=== PATIENT | male | born 1965 | race Caucasian/White ===

== ENCOUNTER 2021-04-16 13:04 | Inpatient (IN) ==
[2021-04-16 15:02] LABS: ABS Basophils 0.1 10^3/ul (0-0.2); ABS Lymphocytes 2.6 10^3/ul (1.0-4.8); ABS Monocytes 0.7 10^3/ul (0-0.8); ABS Neutrophils 5.6 10^3/ul (1.5-7.7); Eosinophil % 0.3 %; Hematocrit 46 % (42-52); Lymphocyte % 28.5 %; Mean Corpuscular HGB Conc 35 g/dL (31-36); Mean Corpuscular Hemoglobin 34 pg (27-31); Mean Corpuscular Volume 97 fL (80-94); Mean Platelet Volume 7.5 fL (7.4-10.4); Nucleated Red Blood Cells % 0.1; Platelet Count 252 10^3/uL (150-450); Red Blood Count 4.72 10^6 /uL (4.18-5.48); Red Cell Distribution Width 13 % (10-15)
[2021-04-16 15:39] LABS: Urine Appearance Clear; Urine Bilirubin Negative (Negative); Urine Blood Negative (Negative); Urine Color Yellow; Urine Glucose Negative (Negative); Urine Ketones 1+ (Negative); Urine Nitrite Negative (Negative); Urine Protein Negative (Negative); Urine Specific Gravity 1.018 (1.002-1.030); Urine Urobilinogen Positive (Negative)
[2021-04-16 15:42] LABS: ALT 25 U/L (7-52); Albumin 4.7 g/dL (3.2-5.2); Albumin/Globulin Ratio 1.7 (1-3); Alkaline Phosphatase 82 U/L (35-149); Blood Urea Nitrogen 17 mg/dL (6-24); CO2 Carbon Dioxide 23 mmol/L (22-32); Calcium 10.2 mg/dL (8.6-10.3); Chloride 106 mmol/L (101-111); Globulin 2.7 g/dL (2-4); Glucose 107 mg/dL (70-100); Sodium 139 mmol/L (135-145); Total Protein 7.4 g/dL (6.4-8.9); eGFR CKD-EPI 98.9 (>60)
[2021-04-16 15:47] LABS: Acetaminophen < 15 mcg/mL; Alcohol, S < 13 mg/dL (<13); Salicylate < 2.50 mg/dL (<30)
[2021-04-16 15:53] LABS: Urine Benzodiazepine Screen None Detected (None Detect); Urine Cannabinoids Screen Presumptive Positive (None Detect); Urine Opiates Screen None Detected (None Detect)
[2021-04-16 16:00] LABS: TSH Ultra Thyroid Stim Horm 0.94 mcIU/mL (0.34-5.60)
[2021-04-16] MEDS ORDERED: Al Hydrox/Mg Hydrox/Simet LIQ 30 ML UDC PO PRN (16:41)
[2021-04-16 16:42] LABS: AST 21 U/L (13-39); Anion Gap 10 mmol/L (2-11); Potassium 3.8 mmol/L (3.5-5.0)
[2021-04-17 07:39] LABS: HDL Cholesterol 36.6 mg/dL
[2021-04-17] MEDS: Vitamin THERAPEUTIC TAB PO SCH (08:46)
[2021-04-17] MEDS ORDERED: Nicotine Lozenge mini 4 MG LOZNG.MINI MT PRN (13:22)
[2021-04-17 17:41] VITALS: BP 110/67
[2021-04-18] MEDS: Vitamin THERAPEUTIC TAB PO SCH (08:50)
== END 2021-04-18 12:30 | disposition home or self-care (01) | DRG 885 ==
LOC: ED 13:04 → EDHOLD 16:42 → BSU 17:30
PROVIDERS: ADMIT Student in an Organized Health Care Education/Training Program; ATTEND Student in an Organized Health Care Education/Training Program